=== PATIENT | male | born 1970 ===

== ENCOUNTER 2022-06-06 05:16 | Day surgery (SDC) | payer OTHER ==
[2022-06-06] MEDS ORDERED: KETO10TA2 PO (08:01)
[2022-06-06] MEDS ORDERED: NEURONTIN300 MG PO (08:01)
[2022-06-06] MEDS ORDERED: ULTRAM50 MG PO (08:01)
[2022-06-06] MEDS ORDERED: MIRALAX17 GM PO (08:01)
[2022-06-06] MEDS ORDERED: TYLENOL ARTHRI650 MG PO (08:01)
== END 2022-06-06 12:05 | disposition home or self-care (01) ==
LOC: CIR.AMB 05:16
PROVIDERS: ATTEND Surgery
DX: K42.0 Umbilical hernia with obstruction, without gangrene (principal); K43.6 Other and unspecified ventral hernia with obstruction, without gangrene; Z20.822 Contact with and (suspected) exposure to COVID-19